=== PATIENT | male | born 1980 | race Caucasian/White ===

== ENCOUNTER 2018-04-07 19:29 | Emergency (ER) | payer OTHER ==
[2018-04-07 19:41] VITALS: BP 131/78
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
[2018-04-07] MEDS ORDERED: CEPHALEXIN 500 MG CAPSULE PO ONE (22:22)
[2018-04-07] MEDS ORDERED: DIPH/PERTUSS(ACELL)/TETANUS VAC/PF 0.5 ML SYR (>=10YO) IM ONE (23:13)
== END 2018-04-07 23:27 | disposition home or self-care (01) ==
LOC: ER 19:29
DX: T24.231A Burn of second degree of right lower leg, initial encounter (principal); X03.8XXA Other exposure to controlled fire, not in building or structure, initial encounter; Y93.H1 Activity, digging, shoveling and raking; Y92.007 Garden or yard of unspecified non-institutional (private) residence as the place of occurrence of the external cause; Z23 Encounter for immunization; F17.210 Nicotine dependence, cigarettes, uncomplicated
CPT/HCPCS: 90715; 99283